=== PATIENT | female | born 1990 | race Caucasian/White ===

== ENCOUNTER 2017-09-14 07:13 | Day surgery (SDC) | payer BC ==
[~2017-09-14] VITALS: Ht 167.6 cm; Wt 76.7 kg
--- NOTE | ~2017-09-14 | OP ---
PATIENT NAME: NIKHIL ANTHONY MEDICAL RECORD: [id number] :89 LOCATION:[facility] ADMISSION DATE: SURGEON: JOSE BYNUM MD DATE OF OPERATION: 09/14/2017 PREOPERATIVE DIAGNOSES: 1. Biliary dyskinesia. 2. Asthma. POSTOPERATIVE DIAGNOSES: 1. Biliary dyskinesia. 2. Asthma. PROCEDURE: Single incision laparoscopic cholecystectomy. SURGEON: Jose Bynum MD REPORT OF PROCEDURE: The patient's abdomen was prepped and draped in sterile fashion. A cutdown was made through the patient's umbilicus. We cutdown through the fascia and entered the abdominal cavity. An SILS port was then inserted and the abdomen was insufflated. The gallbladder was grasped and elevated and showed no sign of any inflammatory changes. The cystic artery and cystic duct were dissected free and these were clipped proximally and distally and ligated in standard fashion. The gallbladder was taken off the liver bed using electrocautery and placed in the right upper quadrant. We irrigated out the right upper quadrant and assured there was no sign of any bleeding or bile leakage. The ports and insufflation were then removed and the gallbladder was taken out through the umbilicus. The umbilical fascia was closed with interrupted 0 Vicryls times 6. The wound was irrigated out with normal saline and infused with 10 mL of 0.25% Marcaine plain. The skin incisions were closed with subcutaneous 5-0 Monocryl and dressed appropriately. COMPLICATIONS: None. CONDITION: Stable. ANESTHESIA: General endotracheal and local. BLOOD LOSS: Minimal. TRANSINT:[id number] Voice Confirmation ID: [id number] DOCUMENT ID: [id number] JOSE BYNUM MD at 1413 CC: OLU DAHL [id number] DICTATION DATE: 09/14/17 1058 DIRECTOR OF RESEARCH: 09/14/17 1115 [facility] 09/14/17 [place] [id number]
[~2017-09-14 07:13] MED LIST: SYMBICORT 16010.2 GM INH; SYNTHROID125 MCG PO
[2017-09-14 08:03] LABS: BASOPHILS 0.6 % (0-2); EOSINOPHILS 3.4 % (0-7); HEMATOCRIT 37.3 % (36.0-48.0); LYMPHOCYTES 29.3 % (15-50); MCH 27.3 pg (26.0-34.0); MCHC 32.2 g/dL (31.0-37.0); MEAN PLATELET VOLUME 9.4 fL (7.4-10.4); MONOCYTES 7.1 % (2-11); NEUTROPHILS 59.6 % (40-80); PLATELET COUNT 214 10x3/uL (130-400); RBC 4.39 10x6/uL (4.00-5.40); RDW 14.3 % (11.5-14.5); WBC 5.3 10x3/uL (4.8-10.8)
[2017-09-14 08:13] LABS: CALC OSMOLALITY 272 mosm/kg (275-300); CALCIUM 8.9 mg/dL (8.5-10.1); CARBON DIOXIDE 21.5 mmol/L (21.0-32.0); CHLORIDE - SERUM 104 mmol/L (98-107); CREATININE - SERUM 0.8 mg/dL (0.6-1.3); GLUCOSE 93 mg/dL (74-106); POTASSIUM - SERUM 3.8 mmol/L (3.5-5.1); SODIUM 137 mmol/L (136-145); UREA NITROGEN 10 mg/dL (7-18); eGFR NON AFRICAN AMERICAN > 90 mL/min (90-120)
[2017-09-14] MEDS ORDERED: FEXOFENADINE HC60 MG PO (08:14)
[2017-09-14 08:24] VITALS: BP 125/78; Ht 167.6 cm; Wt 76.7 kg
[2017-09-14 09:18] LABS: HCG URINE NEGATIVE (NEGATIVE)
[2017-09-14] MEDS ORDERED: HYDROCODONE-APA1 TAB PO (10:55)
== END 2017-09-14 12:45 | disposition home or self-care (01) ==
LOC: D.OPS 07:13
PROVIDERS: Anesthesiology; Surgery
DX: K82.8 Other specified diseases of gallbladder (principal); J45.909 Unspecified asthma, uncomplicated; Z01.812 Encounter for preprocedural laboratory examination